=== PATIENT | female | born 1970 | race Caucasian/White ===

== ENCOUNTER → 2018-04-12 | Outpatient (CLI) | payer OTHER ==
[~2018-04-12] MED LIST: LIDOCAINE-MPF 1%, 5ML ONE; ROPivacaine/PF 0.2%, 10 ML ONE; TRIAMCINOLONE ACETONIDE 40 MG/ML, 1ML ONE
== END | disposition home or self-care (01) ==
LOC: RAD 08:31
PROVIDERS: ATTEND Orthopaedic Surgery
DX: S73.102A Unspecified sprain of left hip, initial encounter (principal); M25.852 Other specified joint disorders, left hip; X58.XXXA Exposure to other specified factors, initial encounter; Y93.89 Activity, other specified; Y92.89 Other specified places as the place of occurrence of the external cause; Y99.8 Other external cause status
CPT/HCPCS: 73525; 73722; J2795; J3301

== ENCOUNTER 2018-08-16 09:22 | Outpatient (CLI) | payer OTHER ==
[2018-08-16] MEDS ORDERED: ALPR0.25 PO (10:01)
== END 2018-08-16 23:59 | disposition home or self-care (01) ==
LOC: STAR 09:22
PROVIDERS: ATTEND Orthopaedic Surgery
DX: Z02.9 Encounter for administrative examinations, unspecified (principal)

== ENCOUNTER 2018-08-29 10:42 | Day surgery (SDC) | payer OTHER ==
[2018-08-16 10:01] VITALS: BP 112/77
[~2018-08-29] VITALS: Ht 172.7 cm; Wt 80.2 kg
[~2018-08-29 10:42] MED LIST changes: +ALPR0.25 PO; -LIDOCAINE-MPF 1%, 5ML ONE; -ROPivacaine/PF 0.2%, 10 ML ONE; -TRIAMCINOLONE ACETONIDE 40 MG/ML, 1ML ONE
[2018-08-29] MEDS ORDERED: EPINEPHRINE 1 MG/ML, 1ML ONE (10:46)
[2018-08-29] MEDS ORDERED: HEPARIN 1,000 UNITS/ML, 30ML ONE (10:46)
[2018-08-29] MEDS ORDERED: BUPIVACAINE/PF 0.25% ONE (10:46)
[2018-08-29] MEDS ORDERED: VANCOMYCIN PMX 1GM/200ML 200 ML IV ONE (12:00)
[2018-08-29] MEDS ORDERED: SCOPOLAMINE PATCH, 1.5MG PATCH.TD72 TD ONE ×2 (12:00→12:04)
[2018-08-29] MEDS ORDERED: ACETAMINOPHEN 500 MG TABLET PO ONE (12:00)
[2018-08-29] MEDS ORDERED: GABAPENTIN 300 MG CAPSULE PO ONE (12:00)
[2018-08-29] MEDS ORDERED: DIAZEPAM 5 MG TABLET PO ONE (12:00)
[2018-08-29] MEDS ORDERED: LACTATED RINGERS 1,000 ML IV SCH (12:00)
[2018-08-29] MEDS ORDERED: GABAPENTIN 300 MG CAPSULE ONE (12:05)
[2018-08-29] MEDS ORDERED: ACETAMINOPHEN 500 MG TABLET ONE (12:05)
[2018-08-29] MEDS ORDERED: DIAZEPAM 5 MG TABLET ONE (12:06)
[2018-08-29] MEDS ORDERED: MIDAZOLAM 1 MG/ML, 2ML ONE (12:06)
[2018-08-29] MEDS ORDERED: DEXAMETHASONE 4 MG/ML, 1ML ONE (12:24)
[2018-08-29] MEDS ORDERED: FENTANYL PF 250 MCG/5ML ONE (12:42)
[2018-08-29] MEDS ORDERED: LORazepam 2 MG/ML, 1ML IVPush PRN (13:00)
[2018-08-29] MEDS ORDERED: MORPHINE SULFATE 4 MG/ML, 1ML IVPush PRN (13:00)
[2018-08-29] MEDS ORDERED: ALBUTEROL SULFATE 2.5 MG/3 ML NPPB PRN (13:00)
[2018-08-29] MEDS ORDERED: HALOPERIDOL 5 MG/ML IV PRN (13:00)
[2018-08-29] MEDS ORDERED: ONDANSETRON ODT 8 MG PO PRN (13:00)
[2018-08-29] MEDS ORDERED: EPHEDRINE 50 MG/ML, 1ML IVPush PRN (13:00)
[2018-08-29] MEDS ORDERED: HYDROmorphone 2 MG/ML, 1ML IVPush PRN (13:00)
[2018-08-29] MEDS ORDERED: ONDANSETRON 2MG/ML, 2ML IV PRN (13:00)
[2018-08-29] MEDS ORDERED: hydrALAzine 20 MG/ML, 1ML IV PRN (13:00)
[2018-08-29] MEDS ORDERED: PROMETHAZINE 25 MG/ML, 1ML IV PRN (13:00)
[2018-08-29] MEDS ORDERED: FENTANYL PF 100 MCG/2ML IV PRN (13:00)
[2018-08-29] MEDS ORDERED: LABETALOL 5MG/ML, 20ML IV PRN (13:00)
[2018-08-29] MEDS ORDERED: PROMETHAZINE 12.5 MG SUPP PR PRN (13:00)
[2018-08-29] MEDS ORDERED: OXYcodone 5 MG/5 ML ORAL.SOL UDC PO PRN (13:00)
[2018-08-29] MEDS ORDERED: MIDAZOLAM 1 MG/ML, 2ML IV PRN (13:00)
[2018-08-29] MEDS ORDERED: MEPERIDINE/PF 25MG/0.5ML IVPush PRN (13:00)
[2018-08-29] MEDS ORDERED: ROCURONIUM 10MG/ML,5ML ONE (13:12)
[2018-08-29] MEDS ORDERED: PROPOFOL 10 MG/ML, 20ML ONE (13:12)
[2018-08-29] MEDS ORDERED: ONDANSETRON 2MG/ML, 2ML ONE (13:47)
[2018-08-29] MEDS ORDERED: ROPIvacaine/PF 0.5%, 30 ML ONE (14:01)
[2018-08-29] MEDS ORDERED: NEOSTIGMINE 1 MG/ML, 10ML ONE (14:01)
[2018-08-29] MEDS ORDERED: GLYCOPYRROLATE 0.4 MG/2 ML, 2ML ONE (14:01)
[2018-08-29] MEDS ORDERED: OXYcodone 5 MG/5 ML ORAL.SOL UDC ONE (14:43)
[2018-08-29] MEDS ORDERED: MEPERIDINE/PF 25MG/ML,1ML ONE (14:46)
== END 2018-08-29 16:50 | disposition home or self-care (01) ==
LOC: OUT 10:42 → EDSTATUS 12:30 → OUT 16:50
PROVIDERS: ATTEND Orthopaedic Surgery
DX: M24.152 Other articular cartilage disorders, left hip (principal); M25.852 Other specified joint disorders, left hip; Z88.0 Allergy status to penicillin; Z88.8 Allergy status to other drugs, medicaments and biological substances
CPT/HCPCS: 29914; 29915; 73501; 76000; 81025; J1100; J2175; J2250; J2405; J2704; J2710; J2795; J3010; J3370; J0171; J1644; J3490

== ENCOUNTER 2019-12-22 09:57 | Emergency (ER) | payer OTHER ==
[~2019-12-22] VITALS: Ht 175.3 cm; Wt 80.2 kg
[2019-12-22 10:04] VITALS: BP 128/80
--- NOTE | 2019-12-22 10:16 | NUR ---
pt to ed from home. 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 c/o inglingt in pinky and thumb. pain from R upper back down arm and shoulder. md at bedside. plan for xr. declines pain meds. call staley in reach. as
--- NOTE | 2019-12-22 11:07 | NUR ---
xr neg pt up for recheck.as
== END 2019-12-22 11:43 | disposition home or self-care (01) ==
LOC: ED 10:14
DX: S46.811A Strain of other muscles, fascia and tendons at shoulder and upper arm level, right arm, initial encounter (principal); G56.21 Lesion of ulnar nerve, right upper limb; X50.9XXA Other and unspecified overexertion or strenuous movements or postures, initial encounter; Y93.89 Activity, other specified; Y92.69 Other specified industrial and construction area as the place of occurrence of the external cause; Y99.0 Civilian activity done for income or pay
CPT/HCPCS: 72050; 99284

== ENCOUNTER → 2020-03-19 | Outpatient (CLI) | payer OTHER | END | disposition home or self-care (01) | LOC: CFH 08:25 | PROVIDERS: ATTEND Family Medicine | DX: Z12.31 Encounter for screening mammogram for malignant neoplasm of breast (principal) | CPT/HCPCS: 77067 ==

== ENCOUNTER → 2020-08-19 | Outpatient (CLI) | payer OTHER ==
[~2020-08-19] MED LIST changes: +CITA20TA6 PO; +HYDR-1067 PO; +METH-640 PO; +MULT-658 PO
== END | disposition home or self-care (01) ==
LOC: RAD 12:07
PROVIDERS: ATTEND Neurological Surgery
DX: M50.123 Cervical disc disorder at C6-C7 level with radiculopathy (principal)
CPT/HCPCS: 72040

== ENCOUNTER 2020-10-01 13:55 | Outpatient (CLI) | payer OTHER ==
[~2020-10-01 13:55] MED LIST changes: -HYDR-1067 PO; +HYDR-2214 PO
== END 2020-10-01 23:59 | disposition home or self-care (01) ==
LOC: RAD 13:55
PROVIDERS: ATTEND Neurological Surgery
DX: M54.2 Cervicalgia (principal)
CPT/HCPCS: 72050